=== PATIENT | male | born 1970 | race Caucasian/White ===

== ENCOUNTER 2017-01-21 22:58 | Emergency (ER) | payer OTHER ==
[~2017-01-21] VITALS: Ht 170.2 cm; Wt 75.0 kg
[2017-01-21 23:10] VITALS: Ht 170.2 cm; Wt 75.0 kg
--- NOTE | 2017-01-21 23:17 | ERA ---
ER Documentation Chief Complaint Date/Time DATE: 01/21/17 TIME: 23:17 Chief Complaint biba and lapd meth use was wandering around the neighborhood paranoid HPI The patient is a 46-year-old male, presenting to the ER because he was found wandering on the street. He has been using amphetamine, he feels as if somebody is following him. He denies suicidal, homicidal ideation, complains of auditory hallucination, denies headache, neck pain, chest pain, abdominal pain, vomiting, dysuria, diarrhea, constipation. He smokes, drinks and does amphetamine Past medical/surgical history: None ROS All systems reviewed and are negative except as per history of present illness. Medications Home Meds Reported Medications Zolpidem Tartrate* (Ambien*) Unknown Strength Tablet, 10 MG PO QHS Y for INSOMNIA, TAB 01/22/17 Allergies Allergies: Coded Allergies: No Known Allergy (Unverified , 01/22/17) PMhx/Soc Medical and Surgical Hx: pt denies Medical Hx, pt denies Surgical Hx Hx Alcohol Use: Yes Hx Substance Use: Yes (meth) Hx Tobacco Use: Yes Smoking Status: Current every day smoker Physical Exam Vitals Vital Signs Date Time Temp Pulse Resp B/P Pulse Ox O2 Delivery O2 Flow Rate FiO2 01/22/17 02:00 99.7 95 20 146/82 100 Room Air 01/21/17 23:10 99.3 108 20 137/80 96 Physical Exam Const: No acute distress. Head: Atraumatic. Eyes: Normal Conjunctiva. ENT: Normal External Ears, Nose and Mouth. Neck: Full range of motion. No meningismus. Resp: Clear to auscultation bilaterally. Cardio: Regular tachycardic Abd: Soft, non distended, normal bowel sounds, non tender. Skin: No petechiae or rashes. Back: No midline or flank tenderness. Ext: No cyanosis, or edema. Neur: Awake and alert. No focal deficit Psych: Anxious Result Diagram: 01/22/177 01/22/17 0017 Results 24 hrs Laboratory Tests Test 01/22/17 00:17 01/22/17 00:30 White Blood Count 8.310^3/ul Red Blood Count 4.4010^6/ul Hemoglobin 14.1g/dl Hematocrit 40.4% Mean Corpuscular Volume 91.8fl Mean Corpuscular Hemoglobin 32.0pg Mean Corpuscular Hemoglobin Concent 34.9g/dl Red Cell Distribution Width 12.7% Platelet Count 10943^3/UL Mean Platelet Volume 11.8fl Neutrophils % 79.4% Lymphocytes % 12.5% Monocytes % 6.8% Eosinophils % 0.7% Basophils % 0.4% Nucleated Red Blood Cells % 0.0/100WBC Neutrophils # 6.610^3/ul Lymphocytes # 1.010^3/ul Monocytes # 0.610^3/ul Eosinophils # 0.110^3/ul Basophils # 0.010^3/ul Nucleated Red Blood Cells # 0.010^3/ul Sodium Level 148mmol/L Potassium Level 4.0mmol/L Chloride Level 102mmol/L Carbon Dioxide Level 28mmol/L Anion Gap 22 Blood Urea Nitrogen 30mg/dl Creatinine 1.10mg/dl Glucose Level 98mg/dl Calcium Level 9.9mg/dl Total Bilirubin 0.6mg/dl Direct Bilirubin 0.00mg/dl Indirect Bilirubin 0.6mg/dl Aspartate Amino Transf (AST/SGOT) 50IU/L Alanine Aminotransferase (ALT/SGPT) 52IU/L Alkaline Phosphatase 99IU/L Total Protein 8.3g/dl Albumin 4.9g/dl Globulin 3.40g/dl Albumin/Globulin Ratio 1.44 Salicylates Level < 1.0mg/dl Acetaminophen Level < 10.0ug/ml Ethyl Alcohol Level < 10.0mg/dl Urine Color LIS Urine Clarity SLIGHTLY CLOUDY Urine pH 5.0 Urine Specific [place] 1.033 Urine Ketones TRACEmg/dL Urine Nitrite NEGATIVEmg/dL Urine Bilirubin NEGATIVEmg/dL Urine Urobilinogen 1+mg/dL Urine Leukocyte Esterase NEGATIVELeu/ul Urine Microscopic RBC 1/HPF Urine Microscopic WBC 2/HPF Urine Mucus MODERATE/HPF Urine Hemoglobin NEGATIVEmg/dL Urine Glucose NEGATIVEmg/dL Urine Total Protein 1+mg/dl Urine Opiates Screen Negative Urine Barbiturates Negative Urine Amphetamines Screen POSITIVE Urine Benzodiazepines Screen Negative Urine Cocaine Screen Negative Urine Cannabinoids Negative Procedures/MDM MEDICAL MAKING DECISION: The patient is a 46-year-old male, presenting with acute amphetamine abuse, probable drug-induced psychosis, acute dehydration. He is getting better emergency department. The differential diagnoses considered include but are not limited to drug-induced psychosis, psychosis, anxiety attack, panic attack, psychiatric illness. He did not want any IV fluids, he was able to tolerate p.o. well Consultation: I dictated patient with the telepsychiatrist who recommended discharge after evaluating the patient Departure Diagnosis: Primary Impression: Amphetamine abuse Additional Impression: Dehydration Condition: Good Comments I discussed the findings with the patient. I advised the patient to follow-up with the primary physician in about 1-2 days, sooner if needed and return if any concern. The patient's blood pressure was elevated (>120/80) but appears stable without evidence of hypertension emergency or urgency. The patient was counseled about the risks of hypertension and urged to pursue outpatient monitoring and therapy within a week with their primary care physician. He is awaiting in the ER to see a social work program coordinator in the morning VENKATESH GOODSON MD Jan 21, 2017 23:17
[2017-01-22 00:27] LABS: BASOPHILS % 0.4 % (0.0-2.0); EOSINOPHILS # 0.1 10^3/ul (0.0-0.5); EOSINOPHILS % 0.7 % (0.0-7.0); HEMATOCRIT 40.4 % (42.0-52.0); HEMOGLOBIN 14.1 g/dl (14.0-18.0); LYMPHOCYTES % 12.5 % (15.0-51.0); MEAN CORPUSCULAR HGB CONC 34.9 g/dl (32.0-37.0); MEAN CORPUSCULAR VOLUME 91.8 fl (82.0-101.0); MEAN PLATELET VOLUME 11.8 fl (7.4-10.4); MONOCYTE # 0.6 10^3/ul (0.3-0.9); MONOCYTES % 6.8 % (0.0-11.0); NEUTROPHIL # 6.6 10^3/ul (1.6-7.5); NEUTROPHILS % 79.4 % (39.0-77.0); PLATELET COUNT 185 10^3/UL (140-415); RED CELL DISTRIBUTION WIDTH 12.7 % (11.5-14.5); WHITE BLOOD COUNT 8.3 10^3/ul (4.8-10.8)
[2017-01-22 00:44] LABS: ALANINE AMINOTRANSFERASE 52 IU/L (13-69); ALBUMIN 4.9 g/dl (3.3-4.9); ALBUMIN/GLOBULIN RATIO 1.44; ALKALINE PHOSPHATASE 99 IU/L (42-121); ANION GAP 22 (8-16); ASPARTATE AMINO TRANSFERASE 50 IU/L (15-46); BILIRUBIN,INDIRECT 0.6 mg/dl (0-1.1); BILIRUBIN,TOTAL 0.6 mg/dl (0.2-1.3); BLOOD UREA NITROGEN 30 mg/dl (7-20); CALCIUM 9.9 mg/dl (8.4-10.2); CARBON DIOXIDE 28 mmol/L (21-31); CHLORIDE 102 mmol/L (97-110); GLUCOSE 98 mg/dl (70-220); SODIUM 148 mmol/L (135-144); TOTAL PROTEIN 8.3 g/dl (6.1-8.1)
[2017-01-22 00:54] LABS: ADD SCAN DIFF NO
[2017-01-22 01:00] LABS: ACETAMINOPHEN < 10.0 ug/ml (10.0-30.0); ETHANOL < 10.0 mg/dl; SALICYLATE < 1.0 mg/dl (5.0-30.0)
[2017-01-22] MEDS ORDERED: ZOLP10TA PO (01:06)
[2017-01-22 01:23] LABS: ADD UMIC YES; UR ASCORBIC ACID NEGATIVE (NEGATIVE); UR BILIRUBIN (Dip) NEGATIVE (NEGATIVE); UR BLOOD (Dip) NEGATIVE (NEGATIVE); UR CLARITY SLIGHTLY CLOUDY (CLEAR); UR COLOR AMBER (YELLOW); UR GLUCOSE (Dip) NEGATIVE (NEGATIVE); UR KETONES (Dip) TRACE mg/dL (NEGATIVE); UR LEUKOCYTE ESTERASE (Dip) NEGATIVE Leu/ul (NEGATIVE); UR MUCUS MODERATE /HPF (NONE SEEN); UR NITRITE (Dip) NEGATIVE (NEGATIVE); UR RBC 1 /HPF (0-5); UR SPECIFIC GRAVITY (Dip) 1.033 (1.003-1.030); UR TOTAL PROTEIN (Dip) 1+ mg/dl (NEGATIVE); UR UROBILINOGEN (Dip) 1+ mg/dL (NEGATIVE)
[2017-01-22 01:39] LABS: BARBITURATES Negative (NEGATIVE); BENZODIAZEPINES Negative (NEGATIVE); CANNABINOIDS Negative (NEGATIVE); COCAINE Negative (NEGATIVE); OPIATES Negative (NEGATIVE)
[2017-01-22 02:00] VITALS: RESP 20
[2017-01-22 04:46] VITALS: BP 128/85; PULSE 80; TEMP 96.9
--- NOTE | 2017-01-22 04:52 | PSY ---
Date/Time of Note Date/Time of Note DATE: 01/22/17 TIME: 04:33 Psychiatric Subjective Eval Subjective Evaluation Chief Complaint: biba and lapd meth use was wandering around the neighborhood paranoid Reason for consult: Paranoid ideation, seeking residential treatment for methamphetamine History of present illness This is a 46 year old male who was brought in by police for wandering in the streets being paranoid. When I interviewed the patient, he said that he was not feeling as paranoid and did not feel that psychotropic medications were necessary. He said that he has had a problem with methamphetamine use for over 20 years. He has received several felony convictions related to his use. Most recently he got into an argument with his family, and closed the gate which was damaged. He was convicted of felony vandalism. He is currently on formal probation. He said that he has had episodes of sobriety for several months, but never longer than 1 year. He said that his last use was about 8 months ago and relapsed 3 days ago. He had been using for the past 3 days. Past psychiatric history Past psychiatric history: He denied any prior psychiatric treatment. He denied any suicide attempts. Family History Family History: He was not aware of any family member who had a problem with substance or or with mental illness. Medical history Problems Medical Problems: (1) Amphetamine abuse Status: Acute (2) Dehydration Status: Acute Allergies: Coded Allergies: No Known Allergy (Unverified , 01/22/17) Substance Abuse Substance abuse history: Yes Prior substance abuse treatmen: Yes Social History Marital status: single Level of education: Dropped out in 10th grade. Received a GED. DPA/Conservatorship: No Occupation/Detention: lays asphalt. Psychiatric Objective Eval Review of Systems: Review of Systems: Not Applicable Constitutional: Normal Eyes: Normal ENT: Normal Neck: Normal Respiratory: Normal Chest/Breast: Normal Cardiovascular: Normal GI: Normal Genitourinary: Normal Skin: Normal Lymphatic: Normal Musculoskeletal: Normal Neurological: Normal Physical Examination: Sleep: Adequate Appetite: Adequate Energy: Adequate Interest: Adequate Mental Status Examination: Appearance: Groomed Eye Contact: Good Psychomotor Activity: Normal Behavior: Cooperative Speech: Clear AFFECT: Appropriate Mood: Appropriate/Full Though Process: Linear Thought Content: Normal Suicidal: No Homicidal: No On 72 hour hold: No Orientation: x4 Cognition: Alert Insight: Intact Judgement: Intact Attention Span: Intact Laboratory Results Laboratory Tests Test 01/22/17 00:17 01/22/17 00:30 White Blood Count 8.310^3/ul Red Blood Count 4.4010^6/ul Hemoglobin 14.1g/dl Hematocrit 40.4% Mean Corpuscular Volume 91.8fl Mean Corpuscular Hemoglobin 32.0pg Mean Corpuscular Hemoglobin Concent 34.9g/dl Red Cell Distribution Width 12.7% Platelet Count 97943^3/UL Mean Platelet Volume 11.8fl Neutrophils % 79.4% Lymphocytes % 12.5% Monocytes % 6.8% Eosinophils % 0.7% Basophils % 0.4% Nucleated Red Blood Cells % 0.0/100WBC Neutrophils # 6.610^3/ul Lymphocytes # 1.010^3/ul Monocytes # 0.610^3/ul Eosinophils # 0.110^3/ul Basophils # 0.010^3/ul Nucleated Red Blood Cells # 0.010^3/ul Sodium Level 148mmol/L Potassium Level 4.0mmol/L Chloride Level 102mmol/L Carbon Dioxide Level 28mmol/L Anion Gap 22 Blood Urea Nitrogen 30mg/dl Creatinine 1.10mg/dl Glucose Level 98mg/dl Calcium Level 9.9mg/dl Total Bilirubin 0.6mg/dl Direct Bilirubin 0.00mg/dl Indirect Bilirubin 0.6mg/dl Aspartate Amino Transf (AST/SGOT) 50IU/L Alanine Aminotransferase (ALT/SGPT) 52IU/L Alkaline Phosphatase 99IU/L Total Protein 8.3g/dl Albumin 4.9g/dl Globulin 3.40g/dl Albumin/Globulin Ratio 1.44 Salicylates Level < 1.0mg/dl Acetaminophen Level < 10.0ug/ml Ethyl Alcohol Level < 10.0mg/dl Urine Color LIS Urine Clarity SLIGHTLY CLOUDY Urine pH 5.0 Urine Specific [place] 1.033 Urine Ketones TRACEmg/dL Urine Nitrite NEGATIVEmg/dL Urine Bilirubin NEGATIVEmg/dL Urine Urobilinogen 1+mg/dL Urine Leukocyte Esterase NEGATIVELeu/ul Urine Microscopic RBC 1/HPF Urine Microscopic WBC 2/HPF Urine Mucus MODERATE/HPF Urine Hemoglobin NEGATIVEmg/dL Urine Glucose NEGATIVEmg/dL Urine Total Protein 1+mg/dl Urine Opiates Screen Negative Urine Barbiturates Negative Urine Amphetamines Screen POSITIVE Urine Benzodiazepines Screen Negative Urine Cocaine Screen Negative Urine Cannabinoids Negative Assessment and Plan Assessment/Diagnosis [place] I: F15.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 NAKUL CERON MD Jan 22, 2017 04:43
== END 2017-01-22 05:00 | disposition home or self-care (01) ==
LOC: E/R 22:58
DX: F15.10 Other stimulant abuse, uncomplicated (principal); E86.0 Dehydration; F17.210 Nicotine dependence, cigarettes, uncomplicated
CPT/HCPCS: 36415; 80053; 80306; 80307; 81001; 85025; Z7502; 99283

== ENCOUNTER 2017-03-27 22:45 | Emergency (ER) | payer OTHER ==
[~2017-03-27] VITALS: Ht 172.7 cm; Wt 75.0 kg
[~2017-03-27 22:45] MED LIST: ZOLP10TA PO
[2017-03-27] MEDS ORDERED: DIPHENHYDRAMINE 50 MG INJ IM ONE (23:00)
[2017-03-27] MEDS ORDERED: HALOPERIDOL 5 MG INJ IM STA (23:00)
[2017-03-27] MEDS ORDERED: LORAZEPAM 2 MG INJ IM ONE (23:00)
[2017-03-27 23:19] VITALS: Ht 172.7 cm; Wt 75.0 kg
[2017-03-28 00:13] LABS: BASOPHIL # 0.1 10^3/ul (0.0-0.1); BASOPHILS % 0.5 % (0.0-2.0); EOSINOPHILS % 0.1 % (0.0-7.0); HEMOGLOBIN 14.5 g/dl (14.0-18.0); LYMPHOCYTES # 0.9 10^3/ul (0.8-2.9); LYMPHOCYTES % 7.8 % (15.0-51.0); MEAN CORPUSCULAR HEMOGLOBIN 31.5 pg (29.0-33.0); MEAN CORPUSCULAR HGB CONC 35.4 g/dl (32.0-37.0); MEAN CORPUSCULAR VOLUME 88.9 fl (82.0-101.0); MEAN PLATELET VOLUME 11.2 fl (7.4-10.4); MONOCYTE # 0.8 10^3/ul (0.3-0.9); MONOCYTES % 7.1 % (0.0-11.0); NEUTROPHILS % 84.2 % (39.0-77.0); PLATELET COUNT 216 10^3/UL (140-415); RED BLOOD COUNT 4.61 10^6/ul (4.70-6.10); RED CELL DISTRIBUTION WIDTH 13.2 % (11.5-14.5); WHITE BLOOD COUNT 11.4 10^3/ul (4.8-10.8)
[2017-03-28 00:39] LABS: ALANINE AMINOTRANSFERASE 48 IU/L (13-69); ALBUMIN 4.7 g/dl (3.3-4.9); ALKALINE PHOSPHATASE 116 IU/L (42-121); ANION GAP 20 (8-16); ASPARTATE AMINO TRANSFERASE 39 IU/L (15-46); BILIRUBIN,INDIRECT 0.9 mg/dl (0-1.1); BILIRUBIN,TOTAL 0.9 mg/dl (0.2-1.3); BLOOD UREA NITROGEN 21 mg/dl (7-20); CALCIUM 9.7 mg/dl (8.4-10.2); CARBON DIOXIDE 20 mmol/L (21-31); CHLORIDE 112 mmol/L (97-110); CREATININE 1.29 mg/dl (0.61-1.24); GLUCOSE 82 mg/dl (70-220); SODIUM 149 mmol/L (135-144); TOTAL PROTEIN 8.3 g/dl (6.1-8.1)
[2017-03-28 01:49] LABS: ACETAMINOPHEN < 10.0 ug/ml (10.0-30.0); ETHANOL < 10.0 mg/dl; SALICYLATE < 1.0 mg/dl (5.0-30.0)
--- NOTE | 2017-03-28 03:31 | ERA ---
ER Documentation Chief Complaint Date/Time DATE: 03/28/17 TIME: 03:29 Chief Complaint meth use, aggitated, in police custody HPI 46-year-old male brought in by EMS for methamphetamine use. Patient is agitated and feels persecuted. Responding to internal stimuli. ROS All systems reviewed and are negative except as per history of present illness. Medications Home Meds Reported Medications Zolpidem Tartrate* (Ambien*) Unknown Strength Tablet, 10 MG PO QHS Y for INSOMNIA, TAB 01/22/17 Allergies Allergies: Coded Allergies: No Known Allergy (Unverified , 01/22/17) PMhx/Soc Medical and Surgical Hx: pt denies Medical Hx, pt denies Surgical Hx Hx Alcohol Use: Yes Hx Substance Use: Yes (meth) Hx Tobacco Use: Yes Smoking Status: Current every day smoker Physical Exam Vitals Vital Signs Date Time Temp Pulse Resp B/P Pulse Ox O2 Delivery O2 Flow Rate FiO2 03/28/17 01:00 98.7 77 16 119/72 99 Room Air 03/28/17 01:00 98.7 81 16 119/72 99 03/27/17 23:19 141 20 126/86 100 Physical Exam Const: [] Head: Atraumatic Eyes: Normal Conjunctiva ENT: Normal External Ears, Nose and Mouth. Neck: Full range of motion..~ No meningismus. Resp: Clear to auscultation bilaterally Cardio: Regular rate and rhythm, no murmurs Abd: Soft, non tender, non distended. Normal bowel sounds Skin: No petechiae or rashes Back: No midline or flank tenderness Ext: No cyanosis, or edema Neur: Awake and alert Psych: Normal Mood and Affect Result Diagram: 03/28/17 0003 03/28/17 0003 Results 24 hrs Laboratory Tests Test 03/28/17 00:03 White Blood Count 11.410^3/ul Red Blood Count 4.6110^6/ul Hemoglobin 14.5g/dl Hematocrit 41.0% Mean Corpuscular Volume 88.9fl Mean Corpuscular Hemoglobin 31.5pg Mean Corpuscular Hemoglobin Concent 35.4g/dl Red Cell Distribution Width 13.2% Platelet Count 62125^3/UL Mean Platelet Volume 11.2fl Neutrophils % 84.2% Lymphocytes % 7.8% Monocytes % 7.1% Eosinophils % 0.1% Basophils % 0.5% Nucleated Red Blood Cells % 0.0/100WBC Neutrophils # (Manual) 9.610^3/ul Lymphocytes # 0.910^3/ul Monocytes # 0.810^3/ul Eosinophils # 0.010^3/ul Basophils # 0.110^3/ul Nucleated Red Blood Cells # 0.010^3/ul Sodium Level 149mmol/L Potassium Level 3.0mmol/L Chloride Level 112mmol/L Carbon Dioxide Level 20mmol/L Anion Gap 20 Blood Urea Nitrogen 21mg/dl Creatinine 1.29mg/dl Glucose Level 82mg/dl Calcium Level 9.7mg/dl Total Bilirubin 0.9mg/dl Direct Bilirubin 0.00mg/dl Indirect Bilirubin 0.9mg/dl Aspartate Amino Transf (AST/SGOT) 39IU/L Alanine Aminotransferase (ALT/SGPT) 48IU/L Alkaline Phosphatase 116IU/L Total Protein 8.3g/dl Albumin 4.7g/dl Globulin 3.60g/dl Albumin/Globulin Ratio 1.30 Salicylates Level < 1.0mg/dl Acetaminophen Level < 10.0ug/ml Ethyl Alcohol Level < 10.0mg/dl Current Medications Medications (Trade) Dose Ordered Sig/Neo Route PRN Reason Start Time Stop Time Status Last Admin Dose Admin Haloperidol (Haldol) 5 mg ONCE STAT IM 03/27/17 23:00 03/27/17 23:02 DC 03/27/17 23:37 Diphenhydramine HCl (Benadryl) 50 mg ONCE ONCE IM 03/27/17 23:00 03/27/17 23:02 DC 03/27/17 23:37 Lorazepam (Ativan) 2 mg ONCE ONCE IM 03/27/17 23:00 03/27/17 23:02 DC 03/27/17 23:40 Procedures/MDM Patient's behavioral symptoms have stabilized while in the department. Patient is medically cleared and appropriate for psychiatric evaluation and work up. No e/o neurologic, toxic, infectious, or metabolic cause. Departure Diagnosis: Primary Impression: Drug abuse Additional Impression: Psychiatric complaint Condition: Stable SERGIO JESSICA Mar 28, 2017 03:31
--- NOTE | 2017-03-28 03:56 | PSY ---
Date/Time of Note Date/Time of Note DATE: 03/28/17 TIME: 02:43 Psychiatric Subjective Eval Consent Pt consented to telemedicine: Yes Subjective Evaluation Patient location: emergency Chief Complaint: meth use, aggitated, in police custody Reason for consult: agitation History of present illness patient is a 46 yo male with PPH Of amphetamine abuse who was brought in to the ER by the police due to being disorganized and agitated in the street and chasing after the cars. WHile in the ER he hadto be medicated with haldol, ativan and benadryl due to being agitated. During the interview he is very drowsy , disorganized, not making sense, unable to answer my questions except to tell me his name. Unable to answer safety questions. Past psychiatric history unknown Hospitalization: other (unknown) Family History unknown Medical history Problems Medical Problems: (1) Amphetamine abuse Status: Acute (2) Dehydration Status: Acute Allergies: Coded Allergies: No Known Allergy (Unverified , 01/22/17) Substance Abuse Substance abuse history: Yes (amphetamine) Prior substance abuse treatmen: No Social History Marital status: single Level of education: unknown DPA/Conservatorship: No Occupation/Custodial: unknown Psychiatric Objective Eval Review of Systems: Review of Systems: Not Applicable Physical Examination: Physical Examination: Applicable Sleep: Insomnia Appetite: Decreased Energy: Decreased Interest: Decreased Mental Status Examination: Appearance: Disheveled Eye Contact: Poor Psychomotor Activity: Agitated Behavior: Cooperative, Bizarre Speech: Clear, Disorganized AFFECT: Libile Mood: Elevated Though Process: Loose Thought Content: Delusions Suicidal: No Homicidal: No On 72 hour hold: No Orientation: x1 Cognition: Obtunded Insight: Impared Judgement: Impared Attention Span: Distractible Laboratory Results Laboratory Tests Test 03/28/17 00:03 White Blood Count 11.410^3/ul Red Blood Count 4.6110^6/ul Hemoglobin 14.5g/dl Hematocrit 41.0% Mean Corpuscular Volume 88.9fl Mean Corpuscular Hemoglobin 31.5pg Mean Corpuscular Hemoglobin Concent 35.4g/dl Red Cell Distribution Width 13.2% Platelet Count 90140^3/UL Mean Platelet Volume 11.2fl Neutrophils % 84.2% Lymphocytes % 7.8% Monocytes % 7.1% Eosinophils % 0.1% Basophils % 0.5% Nucleated Red Blood Cells % 0.0/100WBC Neutrophils # (Manual) 9.610^3/ul Lymphocytes # 0.910^3/ul Monocytes # 0.810^3/ul Eosinophils # 0.010^3/ul Basophils # 0.110^3/ul Nucleated Red Blood Cells # 0.010^3/ul Sodium Level 149mmol/L Potassium Level 3.0mmol/L Chloride Level 112mmol/L Carbon Dioxide Level 20mmol/L Anion Gap 20 Blood Urea Nitrogen 21mg/dl Creatinine 1.29mg/dl Glucose Level 82mg/dl Calcium Level 9.7mg/dl Total Bilirubin 0.9mg/dl Direct Bilirubin 0.00mg/dl Indirect Bilirubin 0.9mg/dl Aspartate Amino Transf (AST/SGOT) 39IU/L Alanine Aminotransferase (ALT/SGPT) 48IU/L Alkaline Phosphatase 116IU/L Total Protein 8.3g/dl Albumin 4.7g/dl Globulin 3.60g/dl Albumin/Globulin Ratio 1.30 Salicylates Level < 1.0mg/dl Acetaminophen Level < 10.0ug/ml Ethyl Alcohol Level < 10.0mg/dl Assessment and Plan Assessment/Diagnosis [place] I: psychosis nos [place] II: deferred [place] III: as per record [place] IV: poor social support [place] V: gaf 25 Recommendation/Plan Medication Management haldol 5 mg im with ativan 2 mg im and benadryl 50 mg im tid for psychosis Follow-up/Disposition Patient cannot be treated at a lower level of care today due to GRAVE DISABLITY including an inability to carry out basic transactions necessary for survival in these areas and as evidenced by these behaviors: - Unable to seek out Food, Unable to seek out Clothing, Unable to seek out Nursing Home, Severe Financial Incompetence, Severe Failure to Adjust in the Community, Severe Incompetence in Regards to Health Self-Management - Patient is labile,intrusive and socially inappropriate with personal boundaries - Confused, disoriented and/or grossly unable to distinguish reality from illusion -Requires near constant monitoring to prevent inadvertent danger to self and others -No family members willing and able to care for patient in the community with this mental state 5150 Recommendation: MEENU Sargent MD Mar 28, 2017 03:14
[2017-03-28 10:06] LABS: ADD UMIC YES; UR ASCORBIC ACID 40 mg/dL (NEGATIVE); UR BILIRUBIN (Dip) NEGATIVE (NEGATIVE); UR BLOOD (Dip) NEGATIVE (NEGATIVE); UR CLARITY SLIGHTLY CLOUDY (CLEAR); UR COLOR AMBER (YELLOW); UR GLUCOSE (Dip) NEGATIVE (NEGATIVE); UR KETONES (Dip) 1+ mg/dL (NEGATIVE); UR LEUKOCYTE ESTERASE (Dip) NEGATIVE Leu/ul (NEGATIVE); UR MUCUS MODERATE /HPF (NONE SEEN); UR NITRITE (Dip) NEGATIVE (NEGATIVE); UR RBC 1 /HPF (0-5); UR TOTAL PROTEIN (Dip) 1+ mg/dl (NEGATIVE); UR UROBILINOGEN (Dip) 1+ mg/dL (NEGATIVE)
[2017-03-28 10:14] LABS: BARBITURATES Negative (NEGATIVE); BENZODIAZEPINES Negative (NEGATIVE); CANNABINOIDS Negative (NEGATIVE); COCAINE Negative (NEGATIVE); OPIATES Negative (NEGATIVE)
--- NOTE | 2017-03-28 10:38 | QN ---
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 JODIE IVAN MD Mar 28, 2017 10:38
--- NOTE | 2017-03-29 11:08 | PSY ---
Date/Time of Note Date/Time of Note DATE: 03/29/17 TIME: 11:01 Psychiatric Subjective Eval Consent Pt consented to telemedicine: Yes Subjective Evaluation Patient location: emergency Chief Complaint: meth use, aggitated, in police custody Reason for consult: agitation History of present illness patient is a 46 yo male with PPH Of amphetamine abuse who was brought in to the ER by the police due to being disorganized and agitated in the street and chasing after the cars. WHile in the ER he hadto be medicated with haldol, ativan and benadryl due to being agitated. He was evaluated by Dr [place]. Re- eval requested. Pt is awake and alert, calm. HE denies any paranoia, denies AH or Vh, denies any Si or Hi, denies depression. 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 Pt admits to using meth and alcohollast night. He says he had a previous experience in the past but never was admitted to inpt psych. No psych meds. Past psychiatric history no inpt no SA no meds Hospitalization: no (unknown) Family History denies Medical history Problems Medical Problems: (1) Amphetamine abuse Status: Acute (2) Dehydration Status: Acute (3) Drug abuse Status: Acute (4) Psychiatric complaint Status: Acute Allergies: Coded Allergies: No Known Allergy (Unverified , 01/22/17) Substance Abuse Substance abuse history: Yes Prior substance abuse treatmen: Yes Social History Marital status: single Level of education: unknown DPA/Conservatorship: No Occupation/Custodial: construction Psychiatric Objective Eval Review of Systems: Review of Systems: Not Applicable Physical Examination: Physical Examination: Not Applicable Mental Status Examination: Appearance: Disheveled Eye Contact: Good Psychomotor Activity: Normal Behavior: Cooperative Speech: Clear AFFECT: Appropriate Mood: Appropriate/Full Though Process: Linear Thought Content: Normal Suicidal: No Homicidal: No Orientation: x4 Cognition: Alert Insight: Impared Judgement: Impared Laboratory Results Laboratory Tests Test 03/28/17 00:03 03/28/17 09:17 White Blood Count 11.410^3/ul Red Blood Count 4.6110^6/ul Hemoglobin 14.5g/dl Hematocrit 41.0% Mean Corpuscular Volume 88.9fl Mean Corpuscular Hemoglobin 31.5pg Mean Corpuscular Hemoglobin Concent 35.4g/dl Red Cell Distribution Width 13.2% Platelet Count 54401^3/UL Mean Platelet Volume 11.2fl Neutrophils % 84.2% Lymphocytes % 7.8% Monocytes % 7.1% Eosinophils % 0.1% Basophils % 0.5% Nucleated Red Blood Cells % 0.0/100WBC Neutrophils # (Manual) 9.610^3/ul Lymphocytes # 0.910^3/ul Monocytes # 0.810^3/ul Eosinophils # 0.010^3/ul Basophils # 0.110^3/ul Nucleated Red Blood Cells # 0.010^3/ul Sodium Level 149mmol/L Potassium Level 3.0mmol/L Chloride Level 112mmol/L Carbon Dioxide Level 20mmol/L Anion Gap 20 Blood Urea Nitrogen 21mg/dl Creatinine 1.29mg/dl Glucose Level 82mg/dl Calcium Level 9.7mg/dl Total Bilirubin 0.9mg/dl Direct Bilirubin 0.00mg/dl Indirect Bilirubin 0.9mg/dl Aspartate Amino Transf (AST/SGOT) 39IU/L Alanine Aminotransferase (ALT/SGPT) 48IU/L Alkaline Phosphatase 116IU/L Total Protein 8.3g/dl Albumin 4.7g/dl Globulin 3.60g/dl Albumin/Globulin Ratio 1.30 Salicylates Level < 1.0mg/dl Acetaminophen Level < 10.0ug/ml Ethyl Alcohol Level < 10.0mg/dl Urine Color LIS Urine Clarity SLIGHTLY CLOUDY Urine pH 5.0 Urine Specific [place] 1.030 Urine Ketones 1+mg/dL Urine Nitrite NEGATIVEmg/dL Urine Bilirubin NEGATIVEmg/dL Urine Urobilinogen 1+mg/dL Urine Leukocyte Esterase NEGATIVELeu/ul Urine Microscopic RBC 1/HPF Urine Microscopic WBC 2/HPF Urine Mucus MODERATE/HPF Urine Hemoglobin NEGATIVEmg/dL Urine Glucose NEGATIVEmg/dL Urine Total Protein 1+mg/dl Urine Opiates Screen Negative Urine Barbiturates Negative Urine Amphetamines Screen POSITIVE Urine Benzodiazepines Screen Negative Urine Cocaine Screen Negative Urine Cannabinoids Negative Assessment and Plan Assessment/Diagnosis [place] I: AMPHETAMINE INDUCED PSYCHOSIS [place] II: DEFERED [place] III: NAD [place] IV: MODERATE [place] V: GAF 40 Recommendation/Plan Medication Management DEFER TO OUTPT Psychotherapy REFER TO 12 STEP Pt. Caregiver/Family Education NA Follow-up/Disposition NO DTS, DTO,GD; PLEASE DISCHARGE WITH REFERRALS TO [facility] TREATMENT. 5150 Recommendation: MARVA HAQUE MD Mar 29, 2017 11:08
[2017-03-29 11:55] VITALS: BP 116/65; PULSE 70; RESP 16; TEMP 98.3
== END 2017-03-29 11:57 | disposition home or self-care (01) ==
LOC: E/R 22:45
DX: F15.10 Other stimulant abuse, uncomplicated (principal); F99 Mental disorder, not otherwise specified; F17.210 Nicotine dependence, cigarettes, uncomplicated; R40.2142 Coma scale, eyes open, spontaneous, at arrival to emergency department; R40.2242 Coma scale, best verbal response, confused conversation, at arrival to emergency department; R40.2362 Coma scale, best motor response, obeys commands, at arrival to emergency department
CPT/HCPCS: 36415; 80053; 80306; 80307; 81001; 85025; 96372; J1200; J1630; J2060; Z7502